=== PATIENT | male | born 1985 | race Caucasian/White ===

== ENCOUNTER 2017-09-18 15:18 | Outpatient (CLI) | payer OTHER ==
--- NOTE | 2017-09-19 16:41 | MRI Report ---
Procedure Date: 09/18/2017 Accession Number: [id number] / [id number] Procedure: MRI - Brain W/O CPT Code: FULL RESULT: EXAM: MRI BRAIN WITHOUT CONTRAST EXAM DATE: 09/18/2017 03:22 PM. CLINICAL HISTORY: Headache. COMPARISON: None. TECHNIQUE: Multiplanar, multisequence T1-weighted and fluid-sensitive MR sequences of the brain were performed. Sequences optimized for routine evaluation. Other: None. IV Contrast: None. FINDINGS: The diffusion-weighted images are normal. There is no evidence of acute or subacute cerebral infarction. The corpus callosum is of normal size and configuration. The pituitary and sella are normal. The craniocervical junction is normal. The cerebral vascular flow voids are patent. The imaged portions of the paranasal sinuses are normally aerated. The bilateral mastoid air cells are normally aerated. The T2 axial FLAIR images are normal. There are 2 punctate foci of susceptibility suggested in the subcortical white matter of the right frontal lobe (13, 801). The differential diagnosis for these findings would include small foci of old blood products from previous microhemorrhage which can be seen in cases of previous trauma or represent small cavernomas. Overall the former would be somewhat favored. Other etiologies which could produce a similar appearance would include small areas of calcification within vessels. The images are degraded by motion. The optic nerves demonstrate symmetric signal intensity and size. The bilateral parotid spaces exhibit normal signal intensity. The imaged portions of the paranasal sinuses are normally aerated. The cerebral vascular flow voids are patent. IMPRESSION: 1. There is no evidence of acute or subacute cerebral infarction. 2. There is no significant white matter disease. 3. There are 2 punctate foci that suggest susceptibility in the subcortical white matter the right frontal lobe. The differential diagnosis for these findings would include small foci of old blood products from previous microhemorrhage which can be seen in cases of previous trauma or represent small cavernomas. Overall the former would be somewhat favored. Other etiologies which can produce a similar appearance would include small areas of calcification within vessels. 4. There is no evidence of brain mass.
== END 2017-09-18 15:19 | disposition home or self-care (01) ==
LOC: DI 15:18
PROVIDERS: ATTEND Family Medicine
DX: R51 Headache (principal)
CPT/HCPCS: 70551